=== PATIENT | male | born 1945 | race Caucasian/White ===

== ENCOUNTER 2022-03-20 22:25 | Emergency (ER) | payer MEDICARE ==
[~2022-03-20] VITALS: Ht 170.2 cm; Wt 59.0 kg
[2022-03-20 22:28] VITALS: BP 156/103
[2022-03-20 23:14] LABS: CLARITY URINE CLEAR (CLEAR); COLOR URINE YELLOW (YELLOW); KETONES URINE NEGATIVE (NEGATIVE); LEUKOCYTE ESTERASE URINE NEGATIVE (NEGATIVE); NITRITE URINE POSITIVE (NEGATIVE); OCCULT BLOOD URINE TRACE (NEGATIVE); PH URINE 5.5 (4.5-8.0); PROTEIN URINE NEGATIVE (NEGATIVE); SPECIFIC GRAVITY URINE 1.011 (1.005-1.030)
[2022-03-20] MEDS ORDERED: FINA1TAB18 MT (23:36)
[2022-03-21 00:18] LABS: HEMATOCRIT. 39.4 % (42.0-52.0); HEMOGLOBIN. 13.3 g/dL (14.0-18.0); MEAN CORPUSCULAR HEMOGLOBIN 31.4 pg (28.0-32.0); MEAN CORPUSCULAR VOLUME 93.1 fL (80.0-94.0); MEAN PLATELET VOLUME 7.9 fl (7.4-10.4); PLATELET 239 x1000/uL (130-400); RED BLOOD CELL COUNT 4.24 mill/uL (4.7-6.1); RED CELL DISTRIBUTION WIDTH 12.7 % (11.6-14.6)
[2022-03-21 00:26] LABS: CHLORIDE 110 mEq/L (98-107)
[2022-03-21 07:36] LABS: PLATELET ESTIMATE NORMAL
== END 2022-03-21 00:06 | disposition home or self-care (01) ==
LOC: ER 22:25
DX: R33.9 Retention of urine, unspecified (principal)
CPT/HCPCS: 36415; 51702; 80053; 81003; 85025; 99284